=== PATIENT | male | born 1950 | race African-American/Black ===

== ENCOUNTER 2016-08-18 11:35 | Inpatient (IN) ==
--- NOTE | 2016-08-18 12:11 | EKG Report ---
Stationary ECG Study [facility] ER Test Date: 08/18/2016 11:51:02 AM Pat Name: Marty GAINES Department: Room: Gender: M Nurse Practitioner Physician Assistant: : [id number] Requested by: Óscar Morna Order Number: [id number] Reading MD: LIOR ISRAEL Intervals Parker Rate: 104 P: 26 AK: 275 QRS: -21 QRSD: 80 T: 117 QT: 304 QTc: 364 Interpretive Statements SINUS TACHYCARDIA WITH PROLONGED AK INTERVAL LEFT AXIS DEVIATION MODERATE T-WAVE ABNORMALITY, Electronically Signed On 08-18-16 17:12:20 CDT by LIOR ISRAEL [email or web address]
[2016-08-18 12:15] LABS: Basophils % 0.1 % (0.0-0.8); Hematocrit 39.1 VOL% (42.0-52.0); Hemoglobin 12.7 GM/DL (14.0-18.0); Immature Granulocytes % 0.6 %; Immature Granulocytes Absolute 0.13 #; Lymphocytes # 1.1 10*3/uL (1.4-4.0); Lymphocytes % 5.4 % (21.2-54.2); Mean Corpuscular HGB Conc 32.5 GM/DL (32-36); Mean Corpuscular Hemoglobin 29 PG (27-34); Mean Corpuscular Volume 88.7 FL (87-102); Mean Platelet Volume 10.3 FL (9.6-12.0); Monocytes # 1.3 10*3/uL (0.11-0.8); Monocytes % 6.4 % (1.7-12.7); Neutrophils # 18.2 10*3/uL (1.4-7.4); Neutrophils % 87.5 % (38.7-73.9); Platelet Count 273 T/CUMM (130-400); Red Blood Count 4.41 MC/CUMM (3.8-5.5); Red Cell Distribution Width 12.8 % (9.3-17.3); White Blood Count 20.8 T/CUMM (4-12)
[2016-08-18 12:25] LABS: INR 1.2; PT Patient Result 12.4 SECS; Partial Thromboplastin Time 39.7 SECS (0-40)
--- NOTE | 2016-08-18 12:28 | Emergency Department Note ---
Palmer Tian Gwan, am scribing for, and in the presence of, Óscar Hodge MD 12:16 . Ayesha Tian James D, MD, personally performed the services described in this documentation, ascribed by Judie Chakraborty in my presence, and it is both accurate and complete . Arrival - Arrival Chief Complaint: Weakness ED Nursing Triage Note: pt started having weakness and fever onset yesterday Mode of Arrival: Stretcher Limitations: No Limitations Source: Patient, Significant other (), Old Records Reviewed, RN Notes Reviewed - History of Present Illness HPI Narrative: Pt is a 65 y/o male, with a hx of gout, who presents to the ED with a c/o generalized weakness and fever with an onset yesterday. At time of triage, pt's temperature was 98.3. Patient family stated that pt was present at Dr. Quintana' s office today. After further review, pt was prompted to report to ED for further evaluation due to weakness in right arm, right leg and that he is extremely lethargic and confused. Family confirmed that pt is compliant with [facility] medications. Pt has a PMHx of afib, HTN, TIA, cerebrovascular accident and dyslipidemia. No other problems/complaints reported in ED. Onset (ago): day(s) Consistency: constant Severity: moderate Allergies/Adverse Reactions: Allergies Allergy/AdvReac Type Severity Reaction Status Date / Time No Known Allergies Allergy Verified 06/14/16 10:40 Home Medications: Home Medications Medication Instructions Recorded Confirmed Type Apixaban [Eliquis] 5 mg PO BID 08/18/16 08/18/16 History Ascorbic Acid [Vitamin C] 1,000 mg PO DAILY 08/18/16 08/18/16 History Aspirin EC Tab 81 mg PO DAILY 08/18/16 08/18/16 History Carvedilol [Coreg] 25 mg PO BID 08/18/16 08/18/16 History Colchicine [Colcrys] 0.6 mg PO DAILY 08/18/16 08/18/16 History Cyclobenzaprine [Flexeril] 10 mg PO TID PRN 08/18/16 08/18/16 History Furosemide Tab [Lasix Tab] 40.5 mg PO DAILY 08/18/16 08/18/16 History Indomethacin Cap [Indocin Cap] 25 mg PO Q8H PRN 08/18/16 08/18/16 History Potassium Chloride 20 meq PO DAILY 08/18/16 08/18/16 History Valsartan 160 mg PO BID 08/18/16 08/18/16 History hydroCHLOROthiazide 50 mg PO DAILY 08/18/16 08/18/16 History [Hydrochlorothiazide] traMADol TAB [Ultram] 50 mg PO BID PRN 08/18/16 08/18/16 History Review of System - Review of System 12 point system: reviewed and no additional remarkable complaints except as stated - Review of System Constitutional: Present: as per HPI, fever. Absent: chills Gastrointestinal: Absent: abdominal pain, nausea, vomiting Musculoskeletal: Absent: arm pain, back pain, leg pain, neck pain Neurological: Present: as per HPI, headache Medical,Surgical,& Family Hx - Medical History Cardio: History of: Cardiac Dysrhythmia (AFIB), Hypertension Neurology: History of: Cerebrovascular Accident, TIA Endocrine: History of: Dyslipidemia Rheumatology: History of;: Gout Musculoskeletal: History of: Musculoskeletal Problems (arthritis) - Family History Family History: Reports;: Family Diabetes, Family Heart Disease - Social History Smoking Status: Never smoker Frequency of Alcohol Use: None Type of Drug Use: None Exam Physical Examination: GENERAL: This is a black male in no apparent distress. VITAL SIGNS: HEENT: Head is normocephalic and atraumatic. Pupils are equally round and reactive to light. Extraocular movement are intact. Oropharynx is benign with moist mucous membranes. NECK: Neck is soft and supple without tenderness. There are no masses. There is no lymphadenopathy. LUNGS: Lungs are clear to auscultation bilaterally. Chest rises symmetrically. There is no chest wall tenderness. CV: Heart is regular rate and rhythm without murmurs, rubs, or gallops. ABDOMEN: Abdomen is soft, non-tender to palpation. There are no abnormal masses palpated. There is no organomegaly. Bowel sounds are present and active. SKIN: Skin is warm and dry. No rash. EXTREMITIES: Patient has full range of motion without tenderness. NEUROLOGIC: Awake and alert. Cranial nerves II through XII grossly intact in right arm and right leg. PSYCHIATRIC: Normal affect. Normal mood. Vital Signs: Vital Signs Temperature 98.3 F 08/18/16 11:38 Pulse Rate 111 H 08/18/16 11:38 Respiratory Rate 20 08/18/16 11:49 Blood Pressure 168/109 08/18/16 11:38 O2 Sat by Pulse Oximetry 93 L 08/18/16 11:38 Course Course Narrative: Patient is not a candidate for TPA due to length of time since onset. Patient last know well time was bedtime of 08/16/2016. Results - Labs CBC & BMP: 08/18/16 12:07 Lab Results: I have reviewed the patients labs - EKG EKG results: interpreted by ERMD - Impressions EKG: Sinus tachycardia with first-degree AV block, rate 104, left axis deviation , ST segment depression laterally consistent with ischemia. Normal axis - Diagnostic Findings Procedure: Chest x-ray: image reviewed by me (No cardiomegaly, no pleural effusions, no infiltrates.), CT: image reviewed by me (CT head: No acute intracranial lesion or hemorrhage.) Disposition Clinical Impression: Stroke, Hyperuricemia, Chronic atrial fibrillation, Chronic anticoagulation Case discussed with: patient Disposition: Still a Patient Condition: Stable
--- NOTE | 2016-08-18 12:37 | XRay Report ---
Portable chest Date: 08/18/2016 Clinical history: Cardiomegaly Comparison: 06/23/2016 Technique: Portable AP sitting chest Findings: The heart is borderline in size. Expiratory chest with minimal atelectasis. Unremarkable mediastinum with degenerative changes. Impression: Expiratory chest with minimal atelectasis. PROCEDURE INTERPRETED AT [facility] DEPARTMENT OF RADIOLOGY Final Report Signed by: Dr. Clara Nguyen
--- NOTE | 2016-08-18 12:44 | CT Report ---
Referring physician: Óscar Hodge Exam: CT brain without contrast Date: August 18, 2016 Comparison: None Reason: Hemiparesis The patient is an Emergency Department patient on August 18, 2016. Technique: Axial images of the head were obtained without the use of contrast. Total DLP was 1195.1 mGy*cm. Findings: There is mild to moderate generalized cerebral and cerebellar atrophy/volume loss and probable chronic microvascular ischemic change. No hydrocephalus or midline shift is present. There is no evidence of recent intracranial hemorrhage, abnormal mass effect or an acute infarction. However, there may be a remote lacunar infarction near the posterior limb of the left internal capsule. No acute osseous process is seen. The mastoid air cells and visualized paranasal sinuses are clear. Impression: 1. No acute intracranial process is identified. 2. Chronic intracranial findings as described above. The CT exam was performed using one or more of the following dose reduction techniques: Automated exposure control and adjustment of the mA and/or kV according to patient size. PROCEDURE INTERPRETED AT [facility] DEPARTMENT OF RADIOLOGY Final Report Signed by: Dr. Patricia Marquez
[2016-08-18 12:52] LABS: Alanine Aminotransferase 22 U/L (16-61); Albumin 3.5 G/DL (3.4-5.0); Alkaline Phosphatase 84 U/L (45-117); Aspartate Amino Transferase 14 U/L (0-37); Blood Urea Nitrogen 20 MG/DL (7-18); Glucose 171 MG/DL (74-106); Osmolality,Calculated 279.8 MOS/KG (273-304); Potassium 3.3 MMOL/L (3.5-5.1); Sodium 137 MMOL/L (136-145); Total Protein 7.7 G/DL (6.4-8.3); Troponin I Only 0.031 NG/ML (0.00-0.045)
[2016-08-18 12:55] LABS: Hypochromasia 1+; Lymphocytes 5 % (20-55); Platelet Estimate Adequate; Segmented Neutrophils 86 % (50-85); Total Cells Counted 100
--- NOTE | 2016-08-18 14:35 | Hospitalist History & Physical ---
Assessment and Plan (1) Hemiparesis Status: Acute Assessment and plan: CT showed no acute changes. Consult Neurology. Follow their recommendations. Bedrest. Check labs. Neuro monitoring. Check vitals q4. Current Visit: Yes (2) Chronic anticoagulation Status: Acute Assessment and plan: Check PT/INR. Current Visit: Yes (3) Hyperuricemia Status: Acute Assessment and plan: Monitor labs daily. Current Visit: Yes History of Present Illness Chief complaint: right sided weakness History of present illness: Mr. Shepard is a 65 year old black male that presented to the ED today with complaints of right sided weakness. Pt is able to lift right arm but unable to lift right leg. is at bedside and stated they intitally thought this was a gout attack. Pt. states he had a "sharp" pain going down right side. Pt's stated patient has been weak on the right since Thursday afternoon. He has not been ambulatory since that time as he spent thursday in bed. She stated that the patient was so weak that he was unable to walk today for appt with cardiology and had to be wheeled in. Pt's also reported confusion with an onset on Thursday that increased today. The patient was seen in Dr. Quintana's office and was sent over for further eval. In ED, pt is presently oriented to person and place but is lethargic and intermittment confusion noted. Pt. has a hx of stroke , TIA, gout, afib, htn, and dyslipidemia. Pt. is on eliquis for afib and reports he is compliant with meds. Pt denies chest pain and being short of breath although stated that she felt he was short of breath this am. Pt also denies chills, sweats, abdominal pain, vision loss, or tingling of extremities. Pt denies nausea and vomiting as well. Pt. will be admitted for further evaluation. Home Medications Medication Instructions Recorded Confirmed Type Apixaban [Eliquis] 5 mg PO BID 08/18/16 08/18/16 History Ascorbic Acid [Vitamin C] 1,000 mg PO DAILY 08/18/16 08/18/16 History Aspirin EC Tab 81 mg PO DAILY 08/18/16 08/18/16 History Carvedilol [Coreg] 25 mg PO BID 08/18/16 08/18/16 History Colchicine [Colcrys] 0.6 mg PO DAILY 08/18/16 08/18/16 History Cyclobenzaprine [Flexeril] 10 mg PO TID PRN 08/18/16 08/18/16 History Furosemide Tab [Lasix Tab] 40.5 mg PO DAILY 08/18/16 08/18/16 History Indomethacin Cap [Indocin Cap] 25 mg PO Q8H PRN 08/18/16 08/18/16 History Potassium Chloride 20 meq PO DAILY 08/18/16 08/18/16 History Valsartan 160 mg PO BID 08/18/16 08/18/16 History hydroCHLOROthiazide 50 mg PO DAILY 08/18/16 08/18/16 History [Hydrochlorothiazide] traMADol TAB [Ultram] 50 mg PO BID PRN 08/18/16 08/18/16 History Allergies Allergy/AdvReac Type Severity Reaction Status Date / Time No Known Allergies Allergy Verified 06/14/16 10:40 Medical,Surgical,& Family Hx - Medical History Cardio: History of: Cardiac Dysrhythmia (AFIB), Hypertension Neurology: History of: Cerebrovascular Accident, TIA Endocrine: History of: Dyslipidemia Rheumatology: History of;: Gout Musculoskeletal: History of: Musculoskeletal Problems (arthritis) - Family History Family History: Reports;: Family Diabetes, Family Heart Disease - Social History Smoking Status: Never smoker Frequency of Alcohol Use: None Type of Drug Use: None Marital Status: Functional capacity: uses cane/walker (occasionally) - Constitutional Constitutional: Present: weakness. Absent: frequent falls - EENT Eyes: Absent: loss of vision Ears: Present: decreased hearing. Absent: ear pain Nose, mouth and throat: Absent: dysphagia, sore throat - Cardiovascular Cardiovascular: Absent: chest pain at rest, dyspnea - Respiratory Respiratory: Absent: cough - Gastrointestinal Gastrointestinal: Absent: constipation, nausea, vomiting - Genitourinary Genitourinary: Absent: difficulty urinating - Neurological Neurological: Present: confusion (per ). Absent: dizziness Exam - Constitutional General appearance: no acute distress, over weight - Head Head exam: Present: normal inspection, normocephalic - Eye Eye exam: Present: EOMI Pupils: Present: VERITO - Respiratory Respiratory exam: Present: clear to auscultation bilaterally. Absent: wheezes - Cardiovascular Cardiovascular exam: Present: regular rate and rhythm - GI/Abdominal GI/Abdominal exam: Present: normal bowel sounds, soft. Absent: tenderness - Extremities Exam Extremities exam: Present: normal capillary refill, other (pt has weakness to right side. upper and lower extremities. ). Absent: normal inspection - Neurological Exam Neurological exam: Present: oriented X3 - Psychiatric Psychiatric exam: Present: normal affect, normal mood - Skin Skin exam: Present: normal color, warm, dry Results - Labs CBC & BMP: 08/18/16 12:07 08/18/16 12:07 Lab Results: I have reviewed the past 24 hour labs
[2016-08-18 16:03] LABS: Risk Ratio 5.71; Troponin I Only 0.018 NG/ML (0.00-0.045); VLDL CHOLESTEROL 33.6 MG/DL
--- NOTE | 2016-08-18 20:32 | XRay Report ---
XR knee 2V BI Indication: Right knee pain and swelling. Right knee 2 views: Medial compartment joint space narrowing, lateral and patellofemoral compartment osteophyte development and a small joint effusion are present. No fracture or dislocation shown. Mild varus deformity of the right knee is present. Impression: [id number] 3 compartment osteoarthritis as described, with a small joint effusion. Left knee 2 views: It is unclear whether this was obtained for comparison purposes or because of a medical complaint. Left knee shows minimal medial compartment joint space narrowing that is not as severe as the right knee. Patellofemoral osteophyte development is present and mild. No fracture, dislocation or significant joint effusion as shown on the left. Impression: Minimal medial compartment arthritis. PROCEDURE INTERPRETED AT [facility] DEPARTMENT OF RADIOLOGY Final Report Signed by: Nikhil Bland M.D.
[2016-08-18] MEDS ORDERED: ACETAMINOPHEN 325 MG TABLET PO PRN (20:43)
--- NOTE | 2016-08-18 21:26 | Ultrasound Report ---
US venous doppler LE RT Indication: Right leg swelling. UNILATERAL (RIGHT) LOWER EXTREMITY VENOUS ULTRASOUND Comparison: None Findings: Graded grayscale compression, color Doppler and pulsed Doppler ultrasound evaluation of the venous structures performed. Normal compressibility, augmentation and color saturation is present within the right common femoral, superficial femoral, popliteal and proximal greater saphenous veins. Impression: No evidence of DVT. PROCEDURE INTERPRETED AT [facility] DEPARTMENT OF RADIOLOGY Final Report Signed by: Nikhil Bland M.D.
[2016-08-18] MEDS: VANCOMYCIN INJ 1,000 MG in SODIUM CHLORIDE 0.9% 250 ML IV SCH (21:38)
[2016-08-18] MEDS: DOCUSATE SODIUM 100 MG CAPSULE PO SCH (21:39)
[2016-08-18] MEDS: CIPROFLOXACIN 500 MG TABLET PO SCH (21:39)
[2016-08-18] MEDS: CARVEDILOL 25 MG TABLET PO SCH (21:39)
[2016-08-18] MEDS: APIXABAN 5 MG TABLET PO SCH (21:40)
[2016-08-18] MEDS: VALSARTAN 160 MG TABLET PO SCH (21:40)
[2016-08-18 22:12] LABS: Barbiturates Screen,Urine Negative (Negative); Benzodiazepines Screen,Urine Negative (Negative); Cannabinoid Screen,Urine Negative (Negative); Opiate Screen,Urine Negative (Negative); Phencyclidine Screen,Urine Negative (Negative)
[2016-08-18 22:14] LABS: Apearance,Urine CLEAR (Clear); Bilirubin,Urine Negative (Negative); Blood, Urine Negative (Negative); Glucose,Urine (UA) Negative (Negative); Granular Casts,Urine 5 /LPF (0-1); Hyaline Casts,Urine 13 /LPF (0-3); Ketones,Urine Negative (Negative); Mucus,Urine Occasional /LPF (Occasional); Nitrite,Urine Negative (Negative); Protein,Urine 100 MG/DL; RBC,Urine <1 /HPF (0-4); Urine Color Yellow (Yellow); Urine Specific Gravity 1.018 (1.001-1.035); WBC,Urine <1 /HPF (0-6)
[2016-08-19 05:39] LABS: Basophils % 0.3 % (0.0-0.8); Eosinophils # 0.1 10*3/uL (0.0-0.87); Eosinophils % 0.6 % (0.00-10.9); Hematocrit 33.1 VOL% (42.0-52.0); Hemoglobin 10.7 GM/DL (14.0-18.0); Immature Granulocytes % 0.6 %; Immature Granulocytes Absolute 0.08 #; Lymphocytes # 1.7 10*3/uL (1.4-4.0); Lymphocytes % 13.1 % (21.2-54.2); Mean Corpuscular HGB Conc 32.3 GM/DL (32-36); Mean Corpuscular Hemoglobin 28 PG (27-34); Mean Corpuscular Volume 86.6 FL (87-102); Mean Platelet Volume 10.9 FL (9.6-12.0); Monocytes # 1.3 10*3/uL (0.11-0.8); Monocytes % 9.8 % (1.7-12.7); Neutrophils # 9.8 10*3/uL (1.4-7.4); Neutrophils % 75.6 % (38.7-73.9); Platelet Count 241 T/CUMM (130-400); Red Blood Count 3.82 MC/CUMM (3.8-5.5); Red Cell Distribution Width 12.8 % (9.3-17.3)
[2016-08-19 06:15] LABS: Calcium 8.8 MG/DL (8.5-10.1); Osmolality,Calculated 280.7 MOS/KG (273-304); Potassium 3.2 MMOL/L (3.5-5.1)
--- NOTE | 2016-08-19 08:58 | Hospitalist Progress Note ---
Assessment and Plan (1) Atrial fibrillation Status: Chronic Assessment and plan: History of CVA with RIND Current Visit: No (2) Gout Status: Chronic Current Visit: No Hospitalist: Subjective Interval history: 65 yo male with history of atrial fibrillation with CVA on chronic Eliquis. Presented with right sided weakness. Has in addition a history of gout on treatment with colchicine and PRN indomethacin with associated complaint of low grade fever and right knee pain. On initial physical examination reported to have warmth and tenderness over the right knee, this AM tender but no warmth nor fluid. Knee xray shows medial compartment arthritic changes with negative DVT scan. Exam - Constitutional Vitals: Period Temp Pulse Resp BP Sys/Patterson Pulse Ox Last 24 Hr 98.3 F-102.3 F 70-113 17-20 112-167/68-88 93-100 General appearance: over weight - Respiratory Respiratory exam: Present: clear to auscultation bilaterally. Absent: rales, rhonchi, wheezes - Cardiovascular Cardiovascular exam: Present: irregular rhythm - GI/Abdominal GI/Abdominal exam: Present: normal bowel sounds. Absent: tenderness - Extremities Exam Extremities exam: Present: other (juliette abnormality on left knee, unremarkable right knee). Absent: edema - Neurological Exam Neurological exam: Present: alert, oriented X3 Results - Labs CBC & BMP: 08/19/16 04:56 08/19/16 04:56 - Diagnostic Findings Procedure: Ultrasound: report reviewed by me (negative DVT scan), X-ray: report reviewed by me (right knee medial compartment changes)
[2016-08-19] MEDS ORDERED: POTASSIUM CHLORIDE 20 MEQ TABLET PO SCH (09:00)
[2016-08-19] MEDS: ASPIRIN EC 81 MG TABLET PO SCH (09:17)
[2016-08-19] MEDS: VALSARTAN 160 MG TABLET PO SCH ×2 (09:17→20:50)
[2016-08-19] MEDS: CIPROFLOXACIN 500 MG TABLET PO SCH ×2 (09:19→20:50)
[2016-08-19] MEDS: APIXABAN 5 MG TABLET PO SCH ×2 (09:19→20:50)
[2016-08-19] MEDS: DOCUSATE SODIUM 100 MG CAPSULE PO SCH ×2 (09:19→20:50)
[2016-08-19] MEDS: CARVEDILOL 25 MG TABLET PO SCH ×2 (09:19→20:50)
[2016-08-19] MEDS: FUROSEMIDE 40 MG TABLET PO SCH (09:19)
--- NOTE | 2016-08-19 14:27 | Neurology Consult Note ---
History of Present Illness History of present illness: Mr. Shepard is a 65 year old right-handed -[place] gentleman that presented to the ED today with complaints of right sided weakness. Pt is able to lift right arm but unable to lift right leg. Patient reported that he is hurting pretty significantly in the right leg and also in the right arm. He has a history of gout. He also has history of right body CVA in the past but did not have any residual weakness. is at bedside and stated they intitally thought this was a gout attack. Pt. states he had a "sharp" pain going down right side. Pt's stated patient has been weak on the right since Thursday afternoon. He has not been ambulatory since that time as he spent thursday in bed. She stated that the patient was so weak that he was unable to walk today for appt with cardiology and had to be wheeled in. Pt's also reported confusion with an onset on Thursday that increased today. Pt. is on eliquis for afib and reports he is compliant with meds. Pt also denies chills, sweats, abdominal pain, vision loss, or tingling of extremities. Pt denies nausea and vomiting as well. A CT of the head reveals no acute abnormalities. Uric acid level is 11.1. Home Medications Medication Instructions Recorded Confirmed Type Apixaban [Eliquis] 5 mg PO BID 08/18/16 08/18/16 History Ascorbic Acid [Vitamin C] 1,000 mg PO DAILY 08/18/16 08/18/16 History Aspirin EC Tab 81 mg PO DAILY 08/18/16 08/18/16 History Carvedilol [Coreg] 25 mg PO BID 08/18/16 08/18/16 History Colchicine [Colcrys] 0.6 mg PO DAILY 08/18/16 08/18/16 History Cyclobenzaprine [Flexeril] 10 mg PO TID PRN 08/18/16 08/18/16 History Furosemide Tab [Lasix Tab] 1.5 tablet PO DAILY 08/18/16 08/18/16 History Ibuprofen 400 mg PO TID PRN 08/18/16 08/18/16 History Indomethacin Cap [Indocin Cap] 25 mg PO Q8H PRN 08/18/16 08/18/16 History Potassium Chloride 20 meq PO DAILY 08/18/16 08/18/16 History Valsartan 160 mg PO BID 08/18/16 08/18/16 History hydroCHLOROthiazide 50 mg PO DAILY 08/18/16 08/18/16 History [Hydrochlorothiazide] traMADol TAB [Ultram] 50 mg PO BID PRN 08/18/16 08/18/16 History Allergies Allergy/AdvReac Type Severity Reaction Status Date / Time No Known Allergies Allergy Verified 06/14/16 10:40 12 point system: reviewed and no additional remarkable complaints except as stated Medical,Surgical,& Family Hx - Medical History Cardio: History of: Cardiac Dysrhythmia (AFIB), Hypertension Neurology: History of: Cerebrovascular Accident, TIA Endocrine: History of: Diabetes Mellitus (NIDDM), Dyslipidemia Rheumatology: History of;: Gout Musculoskeletal: History of: Musculoskeletal Problems (arthritis) - Family History Family History: Reports;: Family Diabetes, Family Heart Disease Denies;: Family Anesthesia Reaction, Family Cancer, Family Hematology, Family Hypertension, Family Psychiatric Problems, Family Stroke, Additional Family History - Social History Smoking Status: Never smoker Frequency of Alcohol Use: None Type of Drug Use: None Exam - Constitutional Vitals: Period Temp Pulse Resp BP Sys/Patterson Pulse Ox Last 24 Hr 98.3 F-102.3 F 70-113 17-20 112-167/68-88 93-100 Exam: GENERAL: Patient is in no acute distress. NECK: Neck is supple. There is no JVD. No carotid bruits present. No thyroid masses. CVS: First and second heart sounds are normal. There is no S3 present. Regular rate and rhythm. RESPIRATORY: Lungs are clear to auscultation without any rales or rhonchi. ABDOMEN: Soft and non-tender. Bowel sounds are present. There is no hepatosplenomegaly. EXT: There is no palpable edema. Peripheral pulses are present. Skin: No rashes Central Nervous system: General: Alert, awake and Oriented x 3 Speech: Fluent Comprehension: Intact and normal Facial expressions: Normal Cranial Nerves: CN1/Olfactory: Normal CN II/ Optic: Normal, Visual Parra unreliable CN III, and : VERITO & EOMI CN V: Normal & intact CN VII: face is symmetric CNVIII: Normal CN XI/X/XI/XII: Intact and Normal Motor: Bulk and Tone is normal. Strength in the right 2-3/5. Primary better is pain. Strength in the left 5/5 Sensory: Grossly intact for all the modalities of PP, LT and temp sense Reflexes: 1+ and symmetrical Cerebellar function: Cannot be tested in the right Toes: Equivocal Gait: Not tested Results - Labs CBC & BMP: 08/19/16 04:56 08/19/16 04:56 Assessment and Plan (1) Right hemiparesis Status: Acute Assessment and plan: Neuro exam is limited due to significant pain. Certainly stroke cannot be excluded. We will go ahead and perform MRI of the brain to Continue Eliquis for now Defer Gout treatment to primary care physician Thank you for the consult Current Visit: Yes
[2016-08-19] MEDS: COLCHICINE 0.6 MG TABLET PO SCH (15:21)
[2016-08-19] MEDS ORDERED: traMADol 50 MG TABLET PO PRN (16:26)
--- NOTE | 2016-08-19 16:38 | Magnetic Resonance Report ---
MRI brain without contrast Indication: Right-sided hemiparesis Comparison: None available Technique: Axial sagittal and coronal imaging of the brain is performed without contrast. T1, T2, FLAIR and diffusion weighted sequences are performed. Findings: No evidence of restricted diffusion seen. No evidence of intracranial hemorrhage, mass, mass effect or midline shift is seen. There is moderate to severe diffuse cerebral and shape. There are areas of white matter T2 signal hyperintensity in both cerebral hemispheres, periventricular and subcortical location. Remaining brain parenchyma has normal signal and differentiation. The ventricles and cisterns are appropriate in caliber. Posterior fossa, mid brain and pituitary gland appear within normal limits. No evidence of cranial or skull base abnormality seen. Impression: No evidence of acute infarct or acute process. Moderate to severe cerebral atrophy. Areas of white matter T2 signal hyperintensity, likely related to chronic microvascular changes. PROCEDURE INTERPRETED AT [facility] DEPARTMENT OF RADIOLOGY Final Report Signed by: Dr. Samm Martinez
[2016-08-19] MEDS: POTASSIUM CHLORIDE 20 MEQ TABLET PO SCH ×2 (17:54→21:03)
[2016-08-19] MEDS: VANCOMYCIN INJ 1,000 MG in SODIUM CHLORIDE 0.9% 250 ML IV SCH (21:03)
[2016-08-20] MEDS: POTASSIUM CHLORIDE 20 MEQ TABLET PO SCH ×2 (02:12→08:17)
[2016-08-20 07:27] LABS: Calcium 9.2 MG/DL (8.5-10.1); Osmolality,Calculated 285.8 MOS/KG (273-304)
[2016-08-20] MEDS: ASPIRIN EC 81 MG TABLET PO SCH (08:16)
[2016-08-20] MEDS: DOCUSATE SODIUM 100 MG CAPSULE PO SCH ×2 (08:17→20:34)
[2016-08-20] MEDS: CARVEDILOL 25 MG TABLET PO SCH ×2 (08:17→20:34)
[2016-08-20] MEDS: COLCHICINE 0.6 MG TABLET PO SCH ×2 (08:17→20:35)
[2016-08-20] MEDS: VALSARTAN 160 MG TABLET PO SCH ×2 (08:17→20:35)
[2016-08-20] MEDS: FUROSEMIDE 40 MG TABLET PO SCH (08:17)
[2016-08-20] MEDS: CIPROFLOXACIN 500 MG TABLET PO SCH (08:17)
[2016-08-20] MEDS: APIXABAN 5 MG TABLET PO SCH ×2 (08:17→20:35)
[2016-08-20] MEDS ORDERED: COLCHICINE 0.6 MG TABLET PO SCH (09:00)
--- NOTE | 2016-08-20 09:01 | Hospitalist Progress Note ---
Assessment and Plan (1) Atrial fibrillation Status: Chronic Assessment and plan: History of CVA with RIND, no new changes on MRI. Current Visit: No (2) Gout Status: Chronic Current Visit: No Hospitalist: Subjective Interval history: 65 yo male with atrial fibrillation in past with CVA on chronic Eliquis. Patient presented with right-sided weakness with MRI showing no acute changes. Had also complaint of right knee pain without warmth but with bursal effusion and radiographic degenerative changes. Was placed on antibiotics initially but does not appear infectious. He reports history of gout the firmness of the diagnosis is not clear. Since will be cleared by neurology will go ahead and have orthopedic evaluate. Note serum creatinine has risen (vancomycin and cipro) Exam - Constitutional Vitals: Period Temp Pulse Resp BP Sys/Patterson Pulse Ox Last 24 Hr 98.2 F-99.8 F 89-95 16-20 104-149/59-77 94-100 General appearance: over weight - Respiratory Respiratory exam: Present: clear to auscultation bilaterally. Absent: rales, rhonchi, wheezes - Cardiovascular Cardiovascular exam: Present: irregular rhythm - GI/Abdominal GI/Abdominal exam: Present: normal bowel sounds - Extremities Exam Extremities exam: Present: other (suprapatellar effusion without warmth). Absent: edema - Neurological Exam Neurological exam: Present: alert, oriented X3 Results - Labs CBC & BMP: 08/19/16 04:56 08/20/16 06:12
--- NOTE | 2016-08-20 15:28 | Neurology Progress Note ---
Neurology - PN : Subjective Interval history: Mr. Shepard seems to be doing much better. Pain has improved significantly. MRI of the brain reveals no acute abnormalities. He is on colchicine now. Exam (Progress Note) - Constitutional Vitals: Period Temp Pulse Resp BP Sys/Patterson Pulse Ox Last 24 Hr 98.2 F-99.8 F 87-95 16-20 104-140/59-89 94-100 Exam: GENERAL: Patient is in no acute distress. NECK: Neck is supple. There is no JVD. No carotid bruits present. No thyroid masses. CVS: First and second heart sounds are normal. There is no S3 present. Regular rate and rhythm. RESPIRATORY: Lungs are clear to auscultation without any rales or rhonchi. ABDOMEN: Soft and non-tender. Bowel sounds are present. There is no hepatosplenomegaly. EXT: There is no palpable edema. Peripheral pulses are present. Skin: No rashes Central Nervous system: General: Alert, awake and Oriented x 3 Speech: Fluent Comprehension: Intact and normal Facial expressions: Normal Cranial Nerves: CN1/Olfactory: Normal CN II/ Optic: Normal, Visual Parra unreliable CN III, and : VERITO & EOMI CN V: Normal & intact CN VII: face is symmetric CNVIII: Normal CN XI/X/XI/XII: Intact and Normal Motor: Bulk and Tone is normal. Strength in the right 4/5. Pain is much better Strength in the left 5/5 Sensory: Grossly intact for all the modalities of PP, LT and temp sense Reflexes: 1+ and symmetrical Cerebellar function: Cannot be tested in the right Toes: Equivocal Gait: Not tested Results - Labs CBC & BMP: 08/19/16 04:56 08/20/16 06:12 Assessment and Plan (1) Right hemiparesis Status: Acute Assessment and plan: Continue Eliquis No further recommendations from neuro standpoint Outpatient PT and OT may be helpful Sign off please call as needed Current Visit: Yes
--- NOTE | 2016-08-20 19:12 | Orthopedic Consult Note ---
History of Present Illness Chief complaint: Right knee pain History of present illness: Mr. Shepard is a 65 year old male who is had a 2 year history of gout. He has been treated with colchicine and has been on allopurinol for just a month. He has been admitted for stroke workup and has been complaining of severe right knee pain. He has not had a recent history of injury. He is on Eliquis. The patient states that his knee has improved through admission. Patient had been placed on a short course of antibiotics and these have been stopped. Home Medications Medication Instructions Recorded Confirmed Type Apixaban [Eliquis] 5 mg PO BID 08/18/16 08/18/16 History Ascorbic Acid [Vitamin C] 1,000 mg PO DAILY 08/18/16 08/18/16 History Aspirin EC Tab 81 mg PO DAILY 08/18/16 08/18/16 History Carvedilol [Coreg] 25 mg PO BID 08/18/16 08/18/16 History Colchicine [Colcrys] 0.6 mg PO DAILY 08/18/16 08/18/16 History Cyclobenzaprine [Flexeril] 10 mg PO TID PRN 08/18/16 08/18/16 History Furosemide Tab [Lasix Tab] 1.5 tablet PO DAILY 08/18/16 08/18/16 History Ibuprofen 400 mg PO TID PRN 08/18/16 08/18/16 History Indomethacin Cap [Indocin Cap] 25 mg PO Q8H PRN 08/18/16 08/18/16 History Potassium Chloride 20 meq PO DAILY 08/18/16 08/18/16 History Valsartan 160 mg PO BID 08/18/16 08/18/16 History hydroCHLOROthiazide 50 mg PO DAILY 08/18/16 08/18/16 History [Hydrochlorothiazide] traMADol TAB [Ultram] 50 mg PO BID PRN 08/18/16 08/18/16 History Allergies Allergy/AdvReac Type Severity Reaction Status Date / Time No Known Allergies Allergy Verified 06/14/16 10:40 12 point system: reviewed and no additional remarkable complaints except as stated Medical,Surgical,& Family Hx - Medical History Cardio: History of: Cardiac Dysrhythmia (AFIB), Hypertension Neurology: History of: Cerebrovascular Accident, TIA Endocrine: History of: Diabetes Mellitus (NIDDM), Dyslipidemia Rheumatology: History of;: Gout Musculoskeletal: History of: Musculoskeletal Problems (arthritis) - Family History Family History: Reports;: Family Diabetes, Family Heart Disease Denies;: Family Anesthesia Reaction, Family Cancer, Family Hematology, Family Hypertension, Family Psychiatric Problems, Family Stroke, Additional Family History - Social History Smoking Status: Never smoker Frequency of Alcohol Use: None Type of Drug Use: None Exam - Constitutional Vitals: Period Temp Pulse Resp BP Sys/Patterson Pulse Ox Last 24 Hr 98.2 F-99.8 F 87-95 16-20 104-140/59-89 94-100 Alert and oriented. Moderate right knee effusion. Moderate limitation in range of motion secondary to pain. He is mildly tender about his knee. His knee is ligamentously stable. Extensor mechanism is intact. No erythema. X-rays reviewed show mild osteophyte formation with maintenance of his joint spaces. Uric acid level is 11.1. The patient did have a leukocytosis of 20 which is now down to 11 as of yesterday. Impression: Acute gout attack Plan: I have increased his colchicine to twice daily. I have offered him an aspiration which the patient has declined since his knee is feeling better. I would consider adding allopurinol or any other agent to improve his hyperuricemia. Reconsult with problems. Results - Labs CBC & BMP: 08/19/16 04:56 08/20/16 06:12
[2016-08-21] MEDS: DOCUSATE SODIUM 100 MG CAPSULE PO SCH ×2 (08:08→20:34)
[2016-08-21] MEDS: POTASSIUM CHLORIDE 20 MEQ TABLET PO SCH (08:08)
[2016-08-21] MEDS: COLCHICINE 0.6 MG TABLET PO SCH ×2 (08:08→20:34)
[2016-08-21] MEDS: CARVEDILOL 25 MG TABLET PO SCH ×2 (08:08→20:34)
[2016-08-21] MEDS: ASPIRIN EC 81 MG TABLET PO SCH (08:09)
[2016-08-21] MEDS: VALSARTAN 160 MG TABLET PO SCH ×2 (08:09→20:34)
[2016-08-21] MEDS: FUROSEMIDE 40 MG TABLET PO SCH (08:09)
[2016-08-21] MEDS: APIXABAN 5 MG TABLET PO SCH ×2 (08:09→20:34)
--- NOTE | 2016-08-21 09:16 | Hospitalist Progress Note ---
Assessment and Plan (1) Atrial fibrillation Status: Chronic Assessment and plan: History of CVA with RIND, no new changes on MRI. Current Visit: No (2) Gout Status: Chronic Current Visit: No Hospitalist: Subjective Interval history: 65-year-old male with atrial fibrillation in the past with cerebrovascular accident maintained on chronic Eliquis. Patient presented with right-sided weakness subjectively with the MRI showing no acute changes. He had complaints of right knee pain without warmth but with a bursal effusion and radiographic good degenerative changes. Initially was placed on antibiotics but had no evidence of systemic infection. He was seen by orthopedics who feel that this is a gout attack. His colchicine has been increased. Patient declined aspiration and injection of the joint space. The patient was recommended for initiation of allopurinol and we will do so at the renally adjusted dose with a single dose of Decadron orally to cover the introduction of the allopurinol. The patient states that he feels better today less swelling. The family is concerned and would desire the possible ability of a swing bed placement. Exam - Constitutional Vitals: Period Temp Pulse Resp BP Sys/Patterson Pulse Ox Last 24 Hr 98.6 F-100.7 F 87-101 16-20 129-149/76-90 92-96 General appearance: over weight - Respiratory Respiratory exam: Present: clear to auscultation bilaterally. Absent: rales, rhonchi, wheezes - Cardiovascular Cardiovascular exam: Present: irregular rhythm - GI/Abdominal GI/Abdominal exam: Present: normal bowel sounds. Absent: tenderness - Extremities Exam Extremities exam: Present: other (Small effusion of the super patellar area right leg). Absent: edema - Neurological Exam Neurological exam: Present: alert, oriented X3 Results - Labs CBC & BMP: 08/19/16 04:56 08/20/16 06:12
[2016-08-21] MEDS ORDERED: DEXAMETHASONE 4 MG TABLET PO SCH (09:30)
[2016-08-21] MEDS: ALLOPURINOL 100 MG TABLET PO SCH (09:42)
[2016-08-22] MEDS: COLCHICINE 0.6 MG TABLET PO SCH (08:43)
[2016-08-22] MEDS: ASPIRIN EC 81 MG TABLET PO SCH (08:43)
[2016-08-22] MEDS: VALSARTAN 160 MG TABLET PO SCH (08:43)
[2016-08-22] MEDS: CARVEDILOL 25 MG TABLET PO SCH (08:44)
[2016-08-22] MEDS: DOCUSATE SODIUM 100 MG CAPSULE PO SCH (08:44)
[2016-08-22] MEDS: APIXABAN 5 MG TABLET PO SCH (08:44)
[2016-08-22] MEDS: ALLOPURINOL 100 MG TABLET PO SCH (08:44)
[2016-08-22] MEDS: POTASSIUM CHLORIDE 20 MEQ TABLET PO SCH (08:44)
[2016-08-22] MEDS: FUROSEMIDE 40 MG TABLET PO SCH (08:46)
[2016-08-22 12:05] VITALS: BP 143/75
--- NOTE | 2016-08-22 13:02 | Discharge Summary ---
<FreitasKathybennett - Last Filed: 08/22/16 13:41> Hospital Course - Hospital Course Hospital Course: Mr. Shepard is a 65 year old black male that presented to the ED on 08/18 with complaints of right sided weakness. Pt. has a hx of stroke, TIA, gout, afib, htn , and dyslipidemia. Pt was able to lift right arm but unable to lift right leg. stated they initially thought this was a gout attack. Pt. states he had a "sharp" pain going down right side. Pt's stated patient had been weak on the right since Thursday afternoon. He had in been ambulatory since that time as he spent thursday in bed. She stated that the patient was so weak that he was unable to walk for appt with cardiology and had to be wheeled in. Pt's also reported confusion with an onset on Thursday that increased. The patient was seen in Dr. Quintana's office and was sent over for further eval. Pt. is on eliquis for afib and reports he is compliant with meds. Pt's CT in ED was unremarkable. Uric acid was 11.1. Pt. was admitted for further evaluation. XR of knee was performed and showed mild osteophyte formation with maintenance of his joint spaces. Pt. was initially was placed on antibiotics but had no evidence of systemic infection and they were discontinued. Pt. was started on colchicine for pain. Neurology was consulted to see the patient. MRI was performed and was unremarkable. Neurologist's assessment suggested that this was a gout attack not a stroke. He also recommended that the patient be started on allopurinol along with the colchicine. Colchicine does was increased. Neurologist also suggested that Ortho consulted to see the patient. Ortho examined the patient and recommended aspiration injection of the joint space but patient declined. Pt. has improved and is ready for discharge. Pt will be discharged to swingbed facility. Diagnosis - Discharge Diagnosis (1) Hemiparesis Status: Acute (2) Chronic anticoagulation Status: Acute (3) Hyperuricemia Status: Acute Specialty Discharge - Follow Up or Referrals Discharge Plan - Discharge Data Disposition: Psych Hosp W Plan Readmit - Discharge Medications New Allopurinol [Zyloprim] 100 mg PO DAILY tablet Apixaban [Eliquis] 5 mg PO BID tablet Aspirin EC Tab 81 mg PO DAILY tablet Colchicine [Colcrys] 0.6 mg PO BID tablet Docusate Sodium Cap [Colace Cap] 100 mg PO BID capsule Furosemide Tab [Lasix Tab] 40 mg PO DAILY tablet HYDROcodone/ACETAMIN 7.5-325 [[place] 7.5-325] 1 tablet PO Q6H PRN #0 tablet PRN Reason: Pain Moderate (4-7) Potassium Chloride Cap/Tab [K Dur] 40 meq PO DAILY tablet traMADol TAB [Ultram] 50 mg PO BID PRN #0 tablet PRN Reason: Pain Acetaminophen Tab [Tylenol Tab] 650 mg PO Q4H PRN #0 tablet PRN Reason: Fever, Headache, Mild Pain Carvedilol [Coreg] 25 mg PO BID tablet Valsartan [Diovan] 160 mg PO BID tablet Continue hydroCHLOROthiazide [Hydrochlorothiazide] 50 mg PO DAILY Indomethacin Cap [Indocin Cap] 25 mg PO Q8H PRN PRN Reason: Gout Ascorbic Acid [Vitamin C] 1,000 mg PO DAILY Cyclobenzaprine [Flexeril] 10 mg PO TID PRN PRN Reason: Pain Discontinued Apixaban [Eliquis] 5 mg PO BID Furosemide Tab [Lasix Tab] 1.5 tablet PO DAILY Valsartan 160 mg PO BID Colchicine [Colcrys] 0.6 mg PO DAILY Aspirin EC Tab 81 mg PO DAILY Ibuprofen 400 mg PO TID PRN PRN Reason: Pain Carvedilol [Coreg] 25 mg PO BID traMADol TAB [Ultram] 50 mg PO BID PRN PRN Reason: Pain Potassium Chloride 20 meq PO DAILY - Follow Up or Referral - Forms/Instructions Instructions: Atrial Fibrillation (DC), Ischemic Stroke (DC), Self Care Measures After a Stroke (DC) DS: Provider Date of admission: 08/18/16 13:35 Primary care physician: . No PCP Attending physician on admission: Monserrat Davis MD Consults: 08/18/16 13:59 Consult to Physician [CONS] Routine Comment: Consulting Provider: Audi Webb Person Notified: michael Date Notified: 08/18/16 Time Notified: 15:07 08/18/16 15:05 Consult to Case Mgmt/Social Srvs [CONS] Routine Reason for Case Mgmt/Social Srvs: Discharge Planning Consult to Occupational Therapy [CONS] Routine Reason for Occupational Therapy: Evaluate and Treat Consult Comment: Stroke Consult to Physical Therapy [CONS] Routine Reason for Physical Therapy: Evaluate and Treat Consult Comment: stroke 08/18/16 15:12 Consult to Pharmacy [CONS] Routine Reason for Pharmacy Consult: Adjust Meds Renal Funct 08/20/16 08:53 Consult to Physician [CONS] Routine Comment: right knee swelling and pain Consulting Provider: Srini Kelsey Jr. Consult to Specialist Group: Orthopedic When should Consulting Provider be notified: Now Person Notified: Soniya Date Notified: 08/20/16 Time Notified: 09:28 Discharging clinician: Aretha Freitas NP <Jose Ramon Galindo - Last Filed: 08/23/16 16:36> Diagnosis - Discharge Diagnosis (1) Gout Status: Chronic (2) Hyperuricemia Status: Acute (3) Chronic atrial fibrillation Status: Acute (4) Chronic anticoagulation Status: Acute Discharge Plan - Forms/Instructions Additional Discharge Instructions: Please discard this discharge summary, I put in another discharge summary for this patient yesterday.
--- NOTE | 2016-08-22 14:47 | Discharge Summary ---
Hospital Course - Hospital Course Hospital Course: Mr. Shepard is a 65 year old black male that presented to the ED on 08/18 with complaints of right sided weakness. Pt. has a hx of stroke, TIA, gout, afib, htn , and dyslipidemia. Pt was able to lift right arm but unable to lift right leg. stated they initially thought this was a gout attack. Pt. states he had a "sharp" pain going down right side. Pt's stated patient had been weak on the right since Thursday afternoon. He had in been ambulatory since that time as he spent thursday in bed. She stated that the patient was so weak that he was unable to walk for appt with cardiology and had to be wheeled in. Pt's also reported confusion with an onset on Thursday that increased. The patient was seen in Dr. Quintana's office and was sent over for further eval. Pt. is on eliquis for afib and reports he is compliant with meds. Pt's CT in ED was unremarkable. Uric acid was 11.1. Pt. was admitted for further evaluation. XR of knee was performed and showed mild osteophyte formation with maintenance of his joint spaces. Pt. was initially was placed on antibiotics but had no evidence of systemic infection and they were discontinued. Pt. was started on colchicine for pain. Neurology was consulted to see the patient. MRI was performed and was unremarkable. Neurologist's assessment suggested that this was a gout attack not a stroke. He also recommended that the patient be started on allopurinol along with the colchicine. Colchicine does was increased. Neurologist also suggested that Ortho consulted to see the patient. Ortho examined the patient and recommended aspiration injection of the joint space but patient declined. Pt. has improved and is ready for discharge. Pt will be discharged to swing bed facility. Avoid red meats and food with high purine levels. Continue allopurinol. F/u with PCP in 4 weeks. - Time spent with patient Time with patient DS: Greater than 30 minutes Diagnosis - Discharge Diagnosis (1) Gout Status: Chronic (2) Hyperuricemia Status: Acute (3) Chronic atrial fibrillation Status: Acute (4) Chronic anticoagulation Status: Acute Specialty Discharge - Follow Up or Referrals Discharge Plan - Discharge Data Disposition: Psych Hosp W Plan Readmit Condition at Discharge: Stable Discharge Diet: heart healthy Activity: resume usual activities as tolerated - Discharge Medications New Allopurinol [Zyloprim] 100 mg PO DAILY tablet Apixaban [Eliquis] 5 mg PO BID tablet Aspirin EC Tab 81 mg PO DAILY tablet Colchicine [Colcrys] 0.6 mg PO BID tablet Docusate Sodium Cap [Colace Cap] 100 mg PO BID capsule Furosemide Tab [Lasix Tab] 40 mg PO DAILY tablet HYDROcodone/ACETAMIN 7.5-325 [[place] 7.5-325] 1 tablet PO Q6H PRN #0 tablet PRN Reason: Pain Moderate (4-7) Potassium Chloride Cap/Tab [K Dur] 40 meq PO DAILY tablet traMADol TAB [Ultram] 50 mg PO BID PRN #0 tablet PRN Reason: Pain Acetaminophen Tab [Tylenol Tab] 650 mg PO Q4H PRN #0 tablet PRN Reason: Fever, Headache, Mild Pain Carvedilol [Coreg] 25 mg PO BID tablet Valsartan [Diovan] 160 mg PO BID tablet Continue hydroCHLOROthiazide [Hydrochlorothiazide] 50 mg PO DAILY Indomethacin Cap [Indocin Cap] 25 mg PO Q8H PRN PRN Reason: Gout Ascorbic Acid [Vitamin C] 1,000 mg PO DAILY Cyclobenzaprine [Flexeril] 10 mg PO TID PRN PRN Reason: Pain Discontinued Apixaban [Eliquis] 5 mg PO BID Furosemide Tab [Lasix Tab] 1.5 tablet PO DAILY Valsartan 160 mg PO BID Colchicine [Colcrys] 0.6 mg PO DAILY Aspirin EC Tab 81 mg PO DAILY Ibuprofen 400 mg PO TID PRN PRN Reason: Pain Carvedilol [Coreg] 25 mg PO BID traMADol TAB [Ultram] 50 mg PO BID PRN PRN Reason: Pain Potassium Chloride 20 meq PO DAILY - Follow Up or Referral - Forms/Instructions Instructions: Atrial Fibrillation (DC), Ischemic Stroke (DC), Self Care Measures After a Stroke (DC) Exam - Constitutional Vitals: Period Temp Pulse Resp BP Sys/Patterson Pulse Ox Last 24 Hr 97.2 F-99.1 F 90-99 18-20 143-152/75-96 94-96 Exam: GENERAL: NAD, AAOx3. HEENT: Pupils equally round and reactive to light, conjunctivae clear. TMs purcell and translucent. Oropharynx pink, with moist mucous membranes. Normal lips, teeth and gums. NECK: Supple without mass. HEART: RRR, no murmur. CHEST: Normal shape, good air movement, no retractions. LUNGS: Clear to auscultation; no rales, rhonchi, or wheezes. ABDOMEN: Soft, nontender, and no hepatosplenomegaly. SKIN: No rash or edema. NEURO: No gross motor deficits noted. Discharge Results Labs on day of discharge: Labs from last 24 hours 08/22/16 08/22/16 08/22/16 11:50 07:13 06:33 POC Glucose 127 H 148 H 151 H 08/21/16 08/21/16 21:31 15:54 POC Glucose 204 H 199 H - Impressions Uric acid level: 11 - Imaging and Cardiology Procedure: MRI: image reviewed by me (No acute changes), X-ray: image reviewed by me (Arthritis) DS: Provider Date of admission: 08/18/16 13:35 Primary care physician: . No PCP Attending physician on admission: Monserrat Davis MD Consults: 08/18/16 13:59 Consult to Physician [CONS] Routine Comment: Consulting Provider: Audi Webb Person Notified: michael Date Notified: 08/18/16 Time Notified: 15:07 08/18/16 15:05 Consult to Case Mgmt/Social Srvs [CONS] Routine Reason for Case Mgmt/Social Srvs: Discharge Planning Consult to Occupational Therapy [CONS] Routine Reason for Occupational Therapy: Evaluate and Treat Consult Comment: Stroke Consult to Physical Therapy [CONS] Routine Reason for Physical Therapy: Evaluate and Treat Consult Comment: stroke 08/18/16 15:12 Consult to Pharmacy [CONS] Routine Reason for Pharmacy Consult: Adjust Meds Renal Funct 08/20/16 08:53 Consult to Physician [CONS] Routine Comment: right knee swelling and pain Consulting Provider: Srini Kelsey Jr. Consult to Specialist Group: Orthopedic When should Consulting Provider be notified: Now Person Notified: Soniya Date Notified: 08/20/16 Time Notified: 09:28 Discharging clinician: Jose Ramon Galindo MD Expected date of discharge: 08/22/16 (To swing bed)
== END 2016-08-22 18:19 | disposition swing bed (61) | DRG 554 ==
LOC: EDUNIT# → EDBD → N.ED 11:35 → SUATTDRO 13:35 → N.EDINP 13:35 → N.5E 15:08
PROVIDERS: ADMIT Internal Medicine; ATTEND Internal Medicine Cardiovascular Disease